=== PATIENT | female | born 1980 | race American Indian/Alaskan Native ===

== ENCOUNTER 2018-03-27 13:04 | Outpatient (CLI) | payer OTHER | END 2018-03-27 13:10 | disposition home or self-care (01) | LOC: MAMO-SONO 13:04 | DX: N60.19 Diffuse cystic mastopathy of unspecified breast (principal); N60.11 Diffuse cystic mastopathy of right breast; N60.12 Diffuse cystic mastopathy of left breast; R10.2 Pelvic and perineal pain; Z12.31 Encounter for screening mammogram for malignant neoplasm of breast ==